=== PATIENT | female | born 1990 | race Caucasian/White ===

== ENCOUNTER 2017-12-23 09:35 | Emergency (ER) | payer OTHER ==
[2017-12-23] MEDS: KETOROLAC 30 MG INJ IM (11:15)
[2017-12-23] MEDS: HYDROCODONE/APAP (5/325) TAB PO (11:15)
[2017-12-23] MEDS: ONDANSETRON (ODT) 4 MG TAB ODT (11:15)
== END 2017-12-23 11:29 | disposition home or self-care (01) ==
LOC: FTE 09:35
DX: R51 Headache (principal)
CPT/HCPCS: 96372; 99284-25

== ENCOUNTER 2019-05-19 10:08 | Emergency (ER) | payer OTHER ==
[2019-05-19] MEDS: ONDANSETRON 4 MG INJ IV ×2 (11:03→13:43)
[2019-05-19] MEDS: morphine 4 MG/ML VIAL IV (11:03)
[2019-05-19] MEDS: SOD CHLORIDE 0.9% 1,000 ML IV (11:04)
[2019-05-19 11:11] LABS: ADD MAN DIFF? NO
[2019-05-19 11:17] LABS: WHITE BLOOD COUNT 12.9 10^3/ul (4.8-10.8)
[2019-05-19 11:17] LABS: BASOPHIL # 0.1 10^3/ul (0.0-0.1); BASOPHILS % 0.5 % (0.0-2.0); EOSINOPHILS # 0.1 10^3/ul (0.0-0.5); EOSINOPHILS % 0.4 % (0.0-7.0); HEMATOCRIT 40.8 % (37.0-47.0); HEMOGLOBIN 14.1 g/dl (12.0-16.0); LYMPHOCYTES # 1.5 10^3/ul (0.8-2.9); LYMPHOCYTES % 11.8 % (15.0-51.0); MEAN CORPUSCULAR HEMOGLOBIN 30.5 pg (29.0-33.0); MEAN CORPUSCULAR HGB CONC 34.6 g/dl (32.0-37.0); MEAN CORPUSCULAR VOLUME 88.3 fl (82.0-101.0); MONOCYTE # 0.7 10^3/ul (0.3-0.9); MONOCYTES % 5.3 % (0.0-11.0); NEUTROPHIL # 10.6 10^3/ul (1.6-7.5); NEUTROPHILS % 81.8 % (39.0-77.0); PLATELET COUNT 323 10^3/UL (140-415); RED BLOOD COUNT 4.62 10^6/ul (4.20-5.40)
[2019-05-19 11:24] LABS: ADD UMIC YES; UR AMORPHOUS CRYSTAL MODERATE /HPF (NONE SEEN); UR ASCORBIC ACID NEGATIVE (NEGATIVE); UR BACTERIA FEW /HPF (NONE SEEN); UR BILIRUBIN (Dip) NEGATIVE (NEGATIVE); UR BLOOD (Dip) NEGATIVE (NEGATIVE); UR CLARITY TURBID (CLEAR); UR COLOR AMBER (YELLOW); UR GLUCOSE (Dip) NEGATIVE (NEGATIVE); UR KETONES (Dip) TRACE mg/dL (NEGATIVE); UR LEUKOCYTE ESTERASE (Dip) NEGATIVE Leu/ul (NEGATIVE); UR MUCUS FEW /HPF (NONE SEEN); UR NITRITE (Dip) NEGATIVE (NEGATIVE); UR RBC 3 /HPF (0-5); UR SPECIFIC GRAVITY (Dip) 1.019 (1.003-1.030); UR TOTAL PROTEIN (Dip) NEGATIVE (NEGATIVE); UR UROBILINOGEN (Dip) NEGATIVE (NEGATIVE); UR WBC 2 /HPF (0-5)
[2019-05-19 11:37] LABS: ALANINE AMINOTRANSFERASE 16 IU/L (13-69); ALBUMIN 4.4 g/dl (3.3-4.9); ALBUMIN/GLOBULIN RATIO 1.29; ALKALINE PHOSPHATASE 90 IU/L (42-121); ANION GAP 12 (5-13); ASPARTATE AMINO TRANSFERASE 21 IU/L (15-46); BILIRUBIN,INDIRECT 0.6 mg/dl (0-1.1); BILIRUBIN,TOTAL 0.6 mg/dl (0.2-1.3); BLOOD UREA NITROGEN 12 mg/dl (7-20); CALCIUM 9.5 mg/dl (8.4-10.2); CARBON DIOXIDE 24 mmol/L (21-31); CHLORIDE 106 mmol/L (97-110); CREATININE 0.54 mg/dl (0.44-1.00); Estimated GFR > 60 mL/min (>60); GLUCOSE 101 mg/dl (70-220); LIPASE 128 U/L (23-300); POTASSIUM 3.3 mmol/L (3.5-5.1); SODIUM 142 mmol/L (135-144); TOTAL PROTEIN 7.8 g/dl (6.1-8.1)
[2019-05-19] MEDS: morphine 2 MG INJ IV ×2 (13:12→14:06)
== END 2019-05-19 14:46 | disposition home or self-care (01) ==
LOC: FTE 10:08
DX: O26.891 Other specified pregnancy related conditions, first trimester (principal); R10.84 Generalized abdominal pain; Z3A.08 8 weeks gestation of pregnancy
CPT/HCPCS: 36415; 76700; 76801; 80053; 81001; 83690; 84702; 85025; 86900; 86901; 96361; 96374; 96375; 96376; 99285-25

== ENCOUNTER 2019-05-20 08:50 | Inpatient (IN) | payer OTHER ==
[2019-05-20] MEDS: SOD CHLORIDE 0.9% 1,000 ML IV (10:11)
[2019-05-20] MEDS: ACETAMINOPHEN 325 MG TAB PO ×2 (10:11→20:17)
[2019-05-20 10:28] LABS: ADD MAN DIFF? NO
[2019-05-20 10:33] LABS: ABNORMAL IP MESSAGE 1; BASOPHILS % 0.4 % (0.0-2.0); HEMATOCRIT 38.8 % (37.0-47.0); HEMOGLOBIN 13.2 g/dl (12.0-16.0); LYMPHOCYTES # 0.6 10^3/ul (0.8-2.9); LYMPHOCYTES % 6.3 % (15.0-51.0); MEAN CORPUSCULAR HEMOGLOBIN 30.1 pg (29.0-33.0); MEAN CORPUSCULAR VOLUME 88.6 fl (82.0-101.0); MEAN PLATELET VOLUME 10.2 fl (7.4-10.4); MONOCYTE # 0.3 10^3/ul (0.3-0.9); MONOCYTES % 3.6 % (0.0-11.0); NEUTROPHIL # 8.3 10^3/ul (1.6-7.5); NEUTROPHILS % 89.4 % (39.0-77.0); PLATELET COUNT 252 10^3/UL (140-415); RED BLOOD COUNT 4.38 10^6/ul (4.20-5.40); RED CELL DISTRIBUTION WIDTH 11.9 % (11.5-14.5)
[2019-05-20 10:33] LABS: WHITE BLOOD COUNT 9.3 10^3/ul (4.8-10.8)
[2019-05-20 10:35] LABS: POSITIVE DIFF @See below
[2019-05-20 10:52] LABS: ALANINE AMINOTRANSFERASE 23 IU/L (13-69); ALBUMIN 4.2 g/dl (3.3-4.9); ALBUMIN/GLOBULIN RATIO 1.27; ALKALINE PHOSPHATASE 73 IU/L (42-121); ANION GAP 12 (5-13); ASPARTATE AMINO TRANSFERASE 22 IU/L (15-46); BILIRUBIN,INDIRECT 0.8 mg/dl (0-1.1); BILIRUBIN,TOTAL 0.8 mg/dl (0.2-1.3); BLOOD UREA NITROGEN 7 mg/dl (7-20); CALCIUM 9.4 mg/dl (8.4-10.2); CARBON DIOXIDE 23 mmol/L (21-31); CHLORIDE 103 mmol/L (97-110); CREATININE 0.46 mg/dl (0.44-1.00); Estimated GFR > 60 mL/min (>60); GLUCOSE 81 mg/dl (70-220); POTASSIUM 3.7 mmol/L (3.5-5.1); SODIUM 138 mmol/L (135-144); TOTAL PROTEIN 7.5 g/dl (6.1-8.1)
[2019-05-20 10:59] LABS: INR 1.03; PARTIAL THROMBOPLASTIN TIME 30.2 Sec (23.0-35.0); PROTIME 13.6 Sec (11.9-14.9); PT RATIO 1.1
[2019-05-20] MEDS: PIPER-TAZO 3.375 GM IV (PMX) 100 ML IVPB ×3 (13:49→23:34)
[2019-05-20] MEDS ORDERED: HYDROmorphONE 1 MG/5 ML IV SYRINGE IV ×3 (15:00)
[2019-05-20] MEDS ORDERED: METOCLOPRAMIDE 10 MG INJ IV (15:00)
[2019-05-20] MEDS ORDERED: ONDANSETRON 4 MG INJ IV ×3 (15:00→16:00)
[2019-05-20] MEDS ORDERED: DIPHENHYDRAMINE 50 MG INJ IV (15:00)
[2019-05-20] MEDS ORDERED: HYDROCODONE/APAP (5/325) TAB PO (15:00)
[2019-05-20] MEDS ORDERED: ALBUTEROL 0.083% (NEB) 2.5 MG/3 ML AMP HHN (15:00)
[2019-05-20] MEDS ORDERED: ACETAMINOPHEN 325 MG TAB PO ×2 (15:00→16:00)
[2019-05-20] MEDS ORDERED: FENTAnyl 50 MCG/ML VIAL (15:06)
[2019-05-20] MEDS ORDERED: PROPOFOL 20 ML (15:29)
[2019-05-20] MEDS ORDERED: ROCURONIUM 50 MG INJ (15:29)
[2019-05-20] MEDS ORDERED: LIDOCAINE 100 MG SYRINGE (15:29)
[2019-05-20] MEDS ORDERED: SUCCINYLCHOLINE CHLORIDE 100 MG/5 ML SYG IV (15:29)
[2019-05-20] MEDS ORDERED: SUGAMMADEX SODIUM 200 MG/2 ML VIAL IV (15:31)
[2019-05-20] MEDS: LIDOCAINE 1%/EPI 30 ML INJ (15:36)
[2019-05-20] MEDS: BUPIVACAINE 0.25% (MPF) 30 ML INJ (15:36)
[2019-05-20] MEDS: FENTAnyl 50 MCG/ML VIAL IV ×2 (16:02→16:45)
[2019-05-20] MEDS: D5-NS + KCL 20 MEQ 1,000 ML IV (18:05)
[2019-05-20] MEDS ORDERED: METOCLOPRAMIDE 10 MG TAB PO (19:00)
[2019-05-20] MEDS ORDERED: DIPHENHYDRAMINE 25 MG CAP PO (19:00)
[2019-05-20] MEDS ORDERED: metroNIDAZOLE 500 MG/NS (PMX) 100 ML IVPB (19:00)
[2019-05-20] MEDS ORDERED: CEFAZOLIN 2 GM/50 ML (PMX) 50 ML IVPB (20:00)
[2019-05-20] MEDS: FAMOTIDINE 20 MG TAB PO (21:00)
[2019-05-21] MEDS: D5-NS + KCL 20 MEQ 1,000 ML IV ×2 (02:48→11:09)
[2019-05-21] MEDS: morphine 2 MG INJ IV (02:48)
[2019-05-21 05:19] LABS: ADD MAN DIFF? NO
[2019-05-21 05:27] LABS: WHITE BLOOD COUNT 7.1 10^3/ul (4.8-10.8)
[2019-05-21 05:27] LABS: BASOPHILS % 0.6 % (0.0-2.0); EOSINOPHILS % 0.1 % (0.0-7.0); HEMATOCRIT 33.4 % (37.0-47.0); HEMOGLOBIN 11.4 g/dl (12.0-16.0); LYMPHOCYTES # 0.8 10^3/ul (0.8-2.9); LYMPHOCYTES % 10.9 % (15.0-51.0); MEAN CORPUSCULAR HEMOGLOBIN 30.1 pg (29.0-33.0); MEAN CORPUSCULAR HGB CONC 34.1 g/dl (32.0-37.0); MEAN CORPUSCULAR VOLUME 88.1 fl (82.0-101.0); MEAN PLATELET VOLUME 10.8 fl (7.4-10.4); MONOCYTE # 0.4 10^3/ul (0.3-0.9); MONOCYTES % 5.6 % (0.0-11.0); NEUTROPHIL # 5.8 10^3/ul (1.6-7.5); NEUTROPHILS % 82.4 % (39.0-77.0); PLATELET COUNT 219 10^3/UL (140-415); RED BLOOD COUNT 3.79 10^6/ul (4.20-5.40); RED CELL DISTRIBUTION WIDTH 12.3 % (11.5-14.5)
[2019-05-21 05:56] LABS: ANION GAP 9 (5-13); BLOOD UREA NITROGEN 4 mg/dl (7-20); CALCIUM 7.9 mg/dl (8.4-10.2); CARBON DIOXIDE 23 mmol/L (21-31); CHLORIDE 107 mmol/L (97-110); CREATININE 0.44 mg/dl (0.44-1.00); Estimated GFR > 60 mL/min (>60); GLUCOSE 103 mg/dl (70-220); POTASSIUM 3.5 mmol/L (3.5-5.1); SODIUM 139 mmol/L (135-144)
[2019-05-21] MEDS: ONDANSETRON 4 MG INJ IV (06:25)
[2019-05-21] MEDS: PIPER-TAZO 3.375 GM IV (PMX) 100 ML IVPB ×2 (06:29→12:05)
[2019-05-21] MEDS: FAMOTIDINE 20 MG TAB PO (08:21)
[2019-05-21] MEDS: ACETAMINOPHEN 325 MG TAB PO (09:25)
[2019-05-21] MEDS ORDERED: HYDROCODONE/APAP (5/325) TAB PO (15:30)
== END 2019-05-21 17:10 | disposition home or self-care (01) | DRG 817 ==
LOC: FTE 08:50 → SUR 14:20 → REC 14:20 → MS1 17:12 → SDS 15:47 → REC 15:47 → MS1 17:20
PROC: 0DTJ4ZZ Resection of Appendix, Percutaneous Endoscopic Approach (ICD-10-PCS; principal; 2019-05-20 14:00)
DX: O26.891 Other specified pregnancy related conditions, first trimester (principal); K85.90 Acute pancreatitis without necrosis or infection, unspecified; Z3A.08 8 weeks gestation of pregnancy
CPT/HCPCS: 36415; 74181; 76801; 80048; 80053; 85025; 85610; 85730; 88304; 96361; 96374; 99285-25

== ENCOUNTER 2019-08-12 21:33 | Outpatient (CLI) | payer OTHER ==
[2019-08-12 22:28] LABS: ADD MAN DIFF? NO
[2019-08-12 22:32] LABS: WHITE BLOOD COUNT 8.1 10^3/ul (4.8-10.8)
[2019-08-12 22:32] LABS: BASOPHIL # 0.1 10^3/ul (0.0-0.1); BASOPHILS % 0.6 % (0.0-2.0); EOSINOPHILS # 0.4 10^3/ul (0.0-0.5); EOSINOPHILS % 4.4 % (0.0-7.0); HEMATOCRIT 35.9 % (37.0-47.0); HEMOGLOBIN 12.2 g/dl (12.0-16.0); LYMPHOCYTES # 1.6 10^3/ul (0.8-2.9); LYMPHOCYTES % 19.9 % (15.0-51.0); MEAN CORPUSCULAR VOLUME 91.1 fl (82.0-101.0); MEAN PLATELET VOLUME 9.4 fl (7.4-10.4); MONOCYTE # 0.7 10^3/ul (0.3-0.9); MONOCYTES % 8.7 % (0.0-11.0); NEUTROPHIL # 5.4 10^3/ul (1.6-7.5); PLATELET COUNT 280 10^3/UL (140-415); RED BLOOD COUNT 3.94 10^6/ul (4.20-5.40); RED CELL DISTRIBUTION WIDTH 12.6 % (11.5-14.5)
[2019-08-12 22:44] LABS: ADD UMIC YES; UR ASCORBIC ACID NEGATIVE (NEGATIVE); UR BACTERIA FEW /HPF (NONE SEEN); UR BILIRUBIN (Dip) NEGATIVE (NEGATIVE); UR BLOOD (Dip) NEGATIVE (NEGATIVE); UR CLARITY SLIGHTLY CLOUDY (CLEAR); UR COLOR YELLOW (YELLOW); UR GLUCOSE (Dip) NEGATIVE (NEGATIVE); UR KETONES (Dip) NEGATIVE (NEGATIVE); UR LEUKOCYTE ESTERASE (Dip) TRACE Leu/ul (NEGATIVE); UR NITRITE (Dip) NEGATIVE (NEGATIVE); UR RBC 1 /HPF (0-5); UR SPECIFIC GRAVITY (Dip) 1.008 (1.003-1.030); UR TOTAL PROTEIN (Dip) NEGATIVE (NEGATIVE); UR UROBILINOGEN (Dip) NEGATIVE (NEGATIVE); UR WBC 4 /HPF (0-5)
[2019-08-12 23:34] LABS: ALANINE AMINOTRANSFERASE 17 IU/L (13-69); ALBUMIN 3.4 g/dl (3.3-4.9); ALKALINE PHOSPHATASE 79 IU/L (42-121); ANION GAP 7 (5-13); ASPARTATE AMINO TRANSFERASE 22 IU/L (15-46); BILIRUBIN,INDIRECT 0.2 mg/dl (0-1.1); BILIRUBIN,TOTAL 0.2 mg/dl (0.2-1.3); BLOOD UREA NITROGEN 5 mg/dl (7-20); CALCIUM 8.7 mg/dl (8.4-10.2); CARBON DIOXIDE 25 mmol/L (21-31); CHLORIDE 105 mmol/L (97-110); CREATININE 0.45 mg/dl (0.44-1.00); Estimated GFR > 60 mL/min (>60); GLUCOSE 110 mg/dl (70-220); POTASSIUM 3.7 mmol/L (3.5-5.1); SODIUM 137 mmol/L (135-144); TOTAL PROTEIN 6.8 g/dl (6.1-8.1)
== END 2019-08-13 00:01 | disposition home or self-care (01) ==
LOC: OBT 21:33 → L-D 21:33
DX: O21.9 Vomiting of pregnancy, unspecified (principal); O34.219 Maternal care for unspecified type scar from previous cesarean delivery; O09.292 Supervision of pregnancy with other poor reproductive or obstetric history, second trimester; Z3A.20 20 weeks gestation of pregnancy
CPT/HCPCS: 76815; 76817; 80053; 81001; 85025; 87086